=== PATIENT | male | born 1995 | race Caucasian/White ===

== ENCOUNTER 2018-10-17 20:22 | Inpatient (IN) | payer BC, OTHER ==
--- NOTE | 2018-10-17 22:41 | ED ---
Psych HPI - General Chief Complaint: Psychiatric Symptoms Stated Complaint: Mental Health Time Seen by Provider: 10/17/18 20:50 Source: patient, police Mode of arrival: ambulatory - History of Present Illness Initial Comments: 22-year-old male patient presents to the emergency department today for evaluation of increased depression. Patient states he has been having suicidal ideation but has no specific plan to take his life. Patient states he has a lot of stressors at home including a girlfriend who spends all of their money on alcohol. States he has a major responsibility for his children. Patient states this is been stressing him out has been causing him to have increased depression. Denies any hallucinations. Denies any history of suicide attempt. States he has never been diagnosed with a mental health conditions and does not take any medications. Denies any concerning physical symptoms. Patient denies any recent rash, fever, chills, shortness breath, chest pain, abdominal pain, nausea, vomiting, diarrhea, constipation, back pain, numbness, tingling, dizziness, weakness, hematuria, dysuria, urinary urgency, urinary frequency, headache, visual changes, or any other complaints. - Related Data Home Medications Medication Instructions Recorded Confirmed No Known Home Medications 10/17/18 10/17/18 Allergies Allergy/AdvReac Type Severity Reaction Status Date / Time No Known Allergies Allergy Verified 10/17/18 21:29 Review of Systems ROS Statement: Those systems with pertinent positive or pertinent negative responses have been documented in the HPI. ROS Other: All systems not noted in ROS Statement are negative. Past Medical History Past Medical History: No Reported History History of Any Multi-Drug Resistant Organisms: None Reported Past Surgical History: No Surgical Hx Reported Past Psychological History: No Psychological Hx Reported Smoking Status: Current every day smoker Past Alcohol Use History: None Reported Past Drug Use History: Marijuana General Exam Limitations: no limitations General appearance: alert, in no apparent distress, other (Physical well- developed, well-nourished adult male patient in no acute distress. Vital signs upon presentation are temperature 98.2F, pulse 118, respirations 20, blood pressure 160/92, pulse ox 98% on room air.) Eye exam: Present: normal appearance, PERRL, EOMI. Absent: scleral icterus, conjunctival injection, periorbital swelling ENT exam: Present: normal exam, normal oropharynx, mucous membranes moist Respiratory exam: Present: normal lung sounds bilaterally. Absent: respiratory distress, wheezes, rales, rhonchi, stridor Cardiovascular Exam: Present: regular rate, normal rhythm, normal heart sounds. Absent: systolic murmur, diastolic murmur, rubs, gallop, clicks GI/Abdominal exam: Present: soft, normal bowel sounds. Absent: distended, tenderness, guarding, rebound, rigid Neurological exam: Present: alert, oriented X3, CN II-XII intact Psychiatric exam: Present: normal affect, normal mood Skin exam: Present: warm, dry, intact, normal color. Absent: rash Course Vital Signs 10/17/18 20:25 Temperature 98.2 F Pulse Rate 118 H Respiratory 20 Rate Blood Pressure 160/92 O2 Sat by Pulse 98 Oximetry Medical Decision Making - Medical Decision Making 22-year-old male patient presents to the emergency department today for increased depression and suicidal ideation. Physical examination is unremarkable. Patient was seen and evaluated by emergency psychiatric services. Is felt that he would benefit from inpatient admission at this time. He'll be transferred to the mental health unit. Disposition Clinical Impression: Depression Disposition: TRANSFER TO PSYCH HOSP/UNIT Condition: Serious Referrals: None,Stated [Primary Care Provider] - 1-2 days - Out of Hospital Transfer - Req. Specs Out of Hospital Transfer - Requested Specifics: Psychiatric Non-ICU ([facility])
[2018-10-17] MEDS ORDERED: MAGNESIUM HYDROXIDE 2,400 MG/10 ML CUP PO PRN (23:26)
[2018-10-17] MEDS ORDERED: ACETAMINOPHEN TAB 325 MG TAB PO PRN (23:26)
[2018-10-17] MEDS ORDERED: MAG HYDROX/AL HYDROX/SIMETH 30 ML CUP PO PRN (23:26)
[2018-10-17] MEDS ORDERED: LORazepam 0.5 MG TAB PO PRN (23:29)
[2018-10-18 02:42] VITALS: BMI 17.2
--- NOTE | 2018-10-18 07:02 | P.MDCNMH ---
History of Present Illness H&P Date: 10/18/18 Chief Complaint: medical H&P 22-year-old male with no significant past medical history presented voluntarily to the hospital due to overwhelming depression and suicidal ideation. Patient reports struggles with life stressors and family issues. Breasts making him anxious and thinking of suicide however he denies having any specific plan. Patient denies any history of mental health problems. Patient denies any history of any other medical problems. He currently denies any headache fevers chills chest pain trouble breathing coughing nausea vomiting abdominal pain changes in his bowel or urinary habits. He denies any focal neurologic deficits Review of Systems Pertinent positives as noted in HPI. All other systems were reviewed and are negative Past Medical History Past Medical History: No Reported History History of Any Multi-Drug Resistant Organisms: None Reported Past Surgical History: No Surgical Hx Reported Smoking Status: Current every day smoker Medications and Allergies Home Medications Medication Instructions Recorded Confirmed Type No Known Home Medications 10/17/18 10/18/18 History Allergies Allergy/AdvReac Type Severity Reaction Status Date / Time No Known Drug Allergies Allergy Unknown Verified 10/18/18 02:43 Physical Exam Vitals: Vital Signs Temp Pulse Pulse Resp BP BP Pulse Ox 10/18/18 02:35 97.9 F 81 18 144/83 10/17/18 23:42 98 F 103 H 18 150/88 98 10/17/18 20:25 98.2 F 118 H 20 160/92 98 Intake and Output 10/17/18 10/17/18 10/18/18 14:59 22:59 06:59 Other: Weight 72.575 kg 60.781 kg Constitutional: No acute distress, conversant, pleasant Eyes: Anicteric sclerae, moist conjunctiva, no lid-lag Pupils equal round reactive to light ENMT: NC/AT Oropharynx clear, no erythema, exudates Neck: Supple, FROM, no masses, or JVD No carotid bruits No thyromegaly Lungs: Clear to auscultation Clear to percussion Normal respiratory effort, no accessory muscle use Cardiovascular: Heart regular in rate and rhythm, No murmurs, gallops, or rubs No peripheral edema Abdominal: Soft Nontender, no guarding, rebound or rigidity Abdomen moving with respiration Normoactive bowel sounds No hepatomegaly, No splenomegaly No palpable mass No abdominal wall hernia noted Skin: Normal temperature, tone, texture, turgor No induration No subcutaneous nodules No rash, lesions No ulcers Extremities: No digital cyanosis No clubbing Pedal pulses intact and symmetrical Radial pulses intact and symmetrical No calf tenderness Psychiatric: Alert and oriented to person, place and time Appropriate affect fair judgment Neuro Muscles Strength 5/5 in all 4 extremities Sensation to light touch grossly present throughout Cranial nerves II-XII grossly intact No focal sensory deficits Lymphatics: no palpable cervical or supraclavicular , or inguinal lymph nodes Cranial Nerve Examination - Cranial Nerves Cranial Nerve II- Optic: Intact Cranial Nerve III- Oculomotor: Intact Cranial Nerve IV- Trochlear: Intact Cranial Nerve V- Trigeminal: Intact Cranial Nerve - Abducens: Intact Cranial Nerve VII- Facial: Intact Cranial Nerve VIII- Auditory: Intact Cranial Nerve IX- Glossopharyngeal: Intact Cranial Nerve X- Vagus: Intact Cranial Nerve XI- Accessory: Intact Cranial Nerve XII- Hypoglossal: Intact Assessment and Plan Assessment: 22-year-old male with no significant past medical history admitted to the mental health unit due to suicidal ideation and depressed mood. Medicine consulted for medical evaluation patient currently denies any medical or physical complaints Plan: Depressed mood Suicidal ideation Suicide precautions Management per psych Tobacco smoking Counseled to quit smoking nicotine replacement therapy Patient is quite DVT patient is ambulatory Thank you for allowing us to participate in the care of this patient. We will follow peripherally. Do not hesitate to contact us with questions. Someone can be reached from the [facility] hospitalist group at all hours of the day at [phone].
[2018-10-18] MEDS: NICOTINE 14MG/24HR PATCH TRANSDERM SCH (07:52)
[2018-10-18 08:24] LABS: Basophils # (A) 0.1 k/uL (0-0.2); Basophils % (A) 1 %; Eosinophils # (A) 0.2 k/uL (0-0.7); Eosinophils % (A) 2 %; HCT 45.7 % (39.0-53.0); HGB 15.9 gm/dL (13.0-17.5); Lymphocytes # (A) 2.1 k/uL (1.0-4.8); Lymphocytes % (A) 31 %; MCH 30.8 pg (25.0-35.0); MCHC 34.8 g/dL (31.0-37.0); MCV 88.7 fL (80.0-100.0); Mean Platelet Volume 6.7; Monocytes # (A) 0.4 k/uL (0-1.0); Monocytes % (A) 6 %; Neutrophils # (A) 3.9 k/uL (1.3-7.7); Neutrophils % (A) 57 %; Platelet Count 208 k/uL (150-450); RBC 5.15 m/uL (4.30-5.90); RDW 12.8 % (11.5-15.5); WBC 6.7 k/uL (3.8-10.6)
[2018-10-18 08:25] LABS: ALT 19 U/L (21-72); AST 15 U/L (17-59); Albumin 4.4 g/dL (3.5-5.0); Alkaline Phosphatase 73 U/L (38-126); Anion Gap 8 mmol/L; Blood Urea Nitrogen 18 mg/dL (9-20); Calcium 9.7 mg/dL (8.4-10.2); Carbon Dioxide 27 mmol/L (22-30); Chloride 108 mmol/L (98-107); Cholesterol 122 mg/dL (<200); Glucose 96 mg/dL (74-99); HDL Cholesterol 45 mg/dL (40-60); LDL Cholesterol,Calculated 67 mg/dL (0-99); Potassium 4.2 mmol/L (3.5-5.1); Sodium 143 mmol/L (137-145); Total Bilirubin 1.1 mg/dL (0.2-1.3); Total Protein 7.2 g/dL (6.3-8.2); Triglycerides 51 mg/dL (<150)
--- NOTE | 2018-10-18 18:06 | P.HP ---
Psychiatric H&P - . H&P Date: 10/18/18 History & Physical: Allergies Allergy/AdvReac Type Severity Reaction Status Date / Time No Known Drug Allergies Allergy Unknown Verified 10/18/18 02:43 Vital Signs Temp 97.9 F 10/18/18 02:35 Pulse 81 10/18/18 02:35 Resp 18 10/18/18 02:35 BP 144/83 10/18/18 02:35 Pulse Ox 98 10/17/18 23:42 Intake & Output 10/17/18 10/18/18 10/18/18 18:59 06:59 18:59 Weight 60.781 kg Laboratory Last Values WBC 6.7 k/uL (3.8-10.6) 10/18/18 07:52 RBC 5.15 m/uL (4.30-5.90) 10/18/18 07:52 Hgb 15.9 gm/dL (13.0-17.5) 10/18/18 07:52 Hct 45.7 % (39.0-53.0) 10/18/18 07:52 MCV 88.7 fL (80.0-100.0) 10/18/18 07:52 MCH 30.8 pg (25.0-35.0) 10/18/18 07:52 MCHC 34.8 g/dL (31.0-37.0) 10/18/18 07:52 RDW 12.8 % (11.5-15.5) 10/18/18 07:52 Plt Count 208 k/uL (150-450) 10/18/18 07:52 Neutrophils % 57 % 10/18/18 07:52 Lymphocytes % 31 % 10/18/18 07:52 Monocytes % 6 % 10/18/18 07:52 Eosinophils % 2 % 10/18/18 07:52 Basophils % 1 % 10/18/18 07:52 Neutrophils # 3.9 k/uL (1.3-7.7) 10/18/18 07:52 Lymphocytes # 2.1 k/uL (1.0-4.8) 10/18/18 07:52 Monocytes # 0.4 k/uL (0-1.0) 10/18/18 07:52 Eosinophils # 0.2 k/uL (0-0.7) 10/18/18 07:52 Basophils # 0.1 k/uL (0-0.2) 10/18/18 07:52 Sodium 143 mmol/L (137-145) 10/18/18 07:52 Potassium 4.2 mmol/L (3.5-5.1) 10/18/18 07:52 Chloride 108 mmol/L (98-107) H 10/18/18 07:52 Carbon Dioxide 27 mmol/L (22-30) 10/18/18 07:52 Anion Gap 8 mmol/L 10/18/18 07:52 BUN 18 mg/dL (9-20) 10/18/18 07:52 Creatinine 1.03 mg/dL (0.66-1.25) 10/18/18 07:52 Est GFR (CKD-EPI)AfAm >90 (>60 ml/min/1.73 sqM) 10/18/18 07:52 Est GFR (CKD-EPI)NonAf >90 (>60 ml/min/1.73 sqM) 10/18/18 07:52 Glucose 96 mg/dL (74-99) 10/18/18 07:52 Calcium 9.7 mg/dL (8.4-10.2) 10/18/18 07:52 Total Bilirubin 1.1 mg/dL (0.2-1.3) 10/18/18 07:52 AST 15 U/L (17-59) L 10/18/18 07:52 ALT 19 U/L (21-72) L 10/18/18 07:52 Alkaline Phosphatase 73 U/L (38-126) 10/18/18 07:52 Total Protein 7.2 g/dL (6.3-8.2) 10/18/18 07:52 Albumin 4.4 g/dL (3.5-5.0) 10/18/18 07:52 Triglycerides 51 mg/dL (<150) 10/18/18 07:52 Cholesterol 122 mg/dL (<200) 10/18/18 07:52 LDL Cholesterol, Calc 67 mg/dL (0-99) 10/18/18 07:52 HDL Cholesterol 45 mg/dL (40-60) 10/18/18 07:52 TSH 1.400 mIU/L (0.465-4.680) 10/18/18 07:52 10/18/18 17:59 IDENTIFYING DATA: 22-year-old single male patient HPI: Admitted to the inpatient psychiatric unit on a voluntary basis with concerns of depression and thoughts of suicide. Patient states that he met his ex-girlfriend 3-4 years ago, He reports that she has some issues with substance use as well as abandonment issues. He states that he was at her house recently and she got an eviction notice. States that she is toxic to him and that it's an ongoing stressor. He states he came in with depression and he states that he is always been depressed. He also admits to being a worrier and admits that he was having some thoughts of harm to himself without a plan. He states that his parents also had given him an ultimatum regarding issues with some of these stressors and he had written a note that they took as a suicide note. He relates that it was not a suicide note. Says he has a difficult time communicating with people who love him the most. He tends to put other people before him and tends to take on others issues. PAST PSYCHIATRIC HISTORY: Patient does not have a current outpatient counselor or psychiatrist. He has no history of medication for psychiatry. He has never had any psychiatric hospitalizations or history of suicide attempts. PMH: Denies ALLERGIES: NO KNOWN DRUG ALLERGIES MEDICATIONS: Haldol when necessary, Maalox when necessary, Ativan when necessary , milk of magnesia when necessary, Habitrol patch CHEMICAL DEPENDENCY HISTORY: Denies FAMILY PSYCHIATRIC HISTORY: Mom with a history of being a worrier. FAMILY CHEMICAL DEPENDENCY HISTORY: None known at this time. 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 Says he was recently from his ex- girlfriend. He currently lives with his parents. He has 1 son who is a year old who he is close with. His biological mom and dad are . He has no history of being abused. MENTAL STATUS EXAM: He is alert and cooperative with the interview. His speech is fluent, not rapid or pressured. Thought processes organized. His mood is described as "okay." He denies any thoughts of harm to self or others. He denies any history of hallucinations. He does not make any delusional statements. He does not show any agitation. Cognitively appears very grossly intact. I do not note any significant disorientation or remote memory disturbance. His insight is adequate, judgment shows evidence of recent impairment. STRENGTHS/WEAKNESSES: Strengths-some support system; weaknesses-coping skills INTELLECTUAL FUNCTIONING: Average IMPRESSIONS: Unspecified depressive disorder; generalized anxiety disorder PLAN: Patient will be admitted to the inpatient psychiatric unit [facility] on a voluntary basis. He will placed on SP 15 minute cautious. He'll participate in group and activity therapies. Baseline laboratory workup be done the patient and medical consultation will be ordered. We'll initiate Zoloft 25 more grams daily to help with depressive and anxiety components. We will look into support systems. Estimated length of stay is 3-5 days. Prognosis is guarded.
[2018-10-19] MEDS: SERTRALINE 25 MG TAB PO SCH (08:46)
[2018-10-19] MEDS: NICOTINE 14MG/24HR PATCH TRANSDERM SCH (08:47)
[2018-10-19 11:00] LABS: Hemoglobin A1C 4.8 % (4.0-6.0)
--- NOTE | 2018-10-19 11:29 | P.PN ---
Progress Note - Text Interval history: The patient is found in group he follows me to an interview room. The patient was admitted over the weekend for acute suicidal ideation. Dr. Soni admitted the patient and completed the psychiatric evaluation. I reviewed the psychiatric evaluation as well as notes from the emergency room. The patient states he's had a very tumultuous relationship with his girlfriend and had yet another verbal altercation. He had felt suicidal he had written a suicide note. He states today that he had no intention of harming himself and uses hoping that now would get read by his parents and they would bring him in for help. He states he was cooperative with the police once they were called. He states that he recognizes that he needs to care for himself and get back on track. He is concerned that he is missing work. He was started on Zoloft by Dr. Soni yesterday. The patient has no questions or concerns regarding the medication. He has been attending groups. He describes no alcohol or drug use history. Mental status exam: The patient is a thin male appearing older than his stated age. He has a shearer his hair is long. He is dressed in his own clothing his pants seem oversized. He is seated in the chair he is demonstrative with speech in terms of moving his arms but demonstrates no verbal or physical aggressiveness. He was cooperative and pleasant throughout the interaction. He indicates he has no acute suicidal ideation intent or plan. He feels safe here in terms of suicidal ideation but reports feeling uncomfortable due to interacting with his peers up here. He is reporting no homicidal ideation he endorses no auditory or visual hallucinations or any specific delusions. He is oriented to person place and date. Plan: The patient will continue on the Zoloft will likely titrate that further during the course of his admission. We discussed needing some time to evaluate his safety risk and he is agreeable. Social work will be asked to arrange a support meeting. He is encouraged to continue participating in the milieu. I do not believe he will need a lengthy admission on the mental health unit. He is willing to follow up with outpatient mental health services upon discharge.
[2018-10-20 06:26] VITALS: BP 135/65; PULSE 66; RESP 16; TEMP 97.6
[2018-10-20] MEDS: SERTRALINE 25 MG TAB PO SCH (08:47)
[2018-10-20] MEDS: NICOTINE 14MG/24HR PATCH TRANSDERM SCH (08:48)
--- NOTE | 2018-10-20 11:32 | P.DS ---
Providers Date of admission: 10/17/18 23:12 Expected date of discharge: 10/20/18 Attending physician: Gurjit Henry Consults: 10/17/18 23:26 Consult Physician Routine Consulting Provider: Stacie Bennett Consult Reason/Comments: medical management Do you want consulting provider notified?: Yes Primary care physician: Stated None - Discharge Diagnosis(es) (1) Major depressive disorder, recurrent Current Visit: Yes Status: Acute Priority: High (2) Generalized anxiety disorder Current Visit: Yes Status: Acute Priority: Medium Hospital Course: Brief summary of admission note: This patient is a 22-year-old male who was admitted to the mental health unit with worsening symptoms of depression and thoughts of suicide. He had been recently involved in a verbal altercation with his ex-girlfriend. He described a long history of excessive daily anxiety. Due to feeling overwhelmed he had written a suicide note and the patient was taken to the hospital for evaluation. For full details please refer to Dr. Soni's psychiatric evaluation dated 10/18/2018. Summary of hospital course: The patient was admitted to the mental health unit voluntarily. The psychiatric evaluation was completed by Dr. Soni and the patient was started on Zoloft 25 mg daily. I assumed care of the patient beginning yesterday and met with him again today. The patient has been participating in groups he's demonstrated no behavioral disturbance. He indicates a resolution of any suicidal ideation. He discusses short-term goals he wishes to accomplish upon discharge. He is amenable to working with an individual therapist upon discharge. He has arrange for his uncle to participate in a support meeting. The patient was seen by internal medicine for routine history and physical exam. We discussed his medication management and decided to titrate the Zoloft further. He has no questions or concerns regarding the Zoloft. Mental status exam: The patient is a male appearing older than his stated age. He has a shearer and long hair. He is dressed in his own clothing eye contact is appropriate. Speech is fluent spontaneous nonpressured. He reports his mood is better he denies having any suicidal or homicidal ideation intent or plan. He reports no auditory or visual hallucinations or any specific delusions. There is no observed evidence of psychosis. He demonstrates no tangential thinking loose associations or flight of ideas. There is no evidence of hypomania or andres. He demonstrates no verbal or physical aggressiveness. He is oriented to person place and date. Insight and judgment grossly intact. Affect is appropriately expressive. Impressions 1. Major depressive disorder recurrent, generalized anxiety disorder Plan: The patient will be discharged mental health unit today. Social work will arrange his outpatient follow-up. The patient will continue on Zoloft 50 mg daily. He indicates he uses no alcohol or illicit drugs he is encouraged to continue abstaining from those substances. There is no imminent safety risk he does not require continued psychiatric hospitalization. He is appropriate for transition to outpatient care. He is instructed to return to the hospital with any acute safety concerns. Patient Condition at Discharge: Stable Plan - Discharge Summary Discharge Rx Participant: No New Discharge Prescriptions: New Sertraline [Zoloft] 50 mg PO DAILY #30 tab Discharge Medication List Sertraline [Zoloft] 50 mg PO DAILY #30 tab 10/20/18 [Rx] Follow up Appointment(s)/Referral(s): None,Stated [Primary Care Provider] - 1-2 days
[2018-10-21] MEDS ORDERED: SERTRALINE 50 MG TAB PO SCH (09:00)
== END 2018-10-20 14:09 | disposition home or self-care (01) | DRG 885 ==
LOC: EC 20:22 → 3MHU 23:12
PROVIDERS: ADMIT Psychiatry & Neurology Psychiatry; ATTEND Psychiatry & Neurology Psychiatry
DX: F33.9 Major depressive disorder, recurrent, unspecified (principal); R45.851 Suicidal ideations; F41.1 Generalized anxiety disorder; Z79.899 Other long term (current) drug therapy; Z71.6 Tobacco abuse counseling; F17.210 Nicotine dependence, cigarettes, uncomplicated
CPT/HCPCS: 80053; 80061; 83036; 84443; 85025; 99285